=== PATIENT | male | born 1975 | race Caucasian/White ===

== ENCOUNTER 2018-01-28 07:16 | Day surgery (SDC) | payer OTHER ==
[2018-01-28] MEDS: NS 1,000 ML IV (08:00)
[2018-01-28] MEDS ORDERED: PROPOFOL 200 MG/20 ML VIAL As Ordered (08:56)
[2018-01-28] MEDS ORDERED: LIDOCAINE 2% INJ 100 MG/5 ML SDV (FOR ANES.) As Ordered (08:56)
== END 2018-01-28 09:55 | disposition home or self-care (01) ==
LOC: M OPP 07:16
DX: K64.0 First degree hemorrhoids (principal); K51.90 Ulcerative colitis, unspecified, without complications; Z86.010 Personal history of colon polyps; G47.30 Sleep apnea, unspecified; G43.909 Migraine, unspecified, not intractable, without status migrainosus; F32.9 Major depressive disorder, single episode, unspecified; M16.12 Unilateral primary osteoarthritis, left hip; Z79.891 Long term (current) use of opiate analgesic; Z79.899 Other long term (current) drug therapy; Z09 Encounter for follow-up examination after completed treatment for conditions other than malignant neoplasm
CPT/HCPCS: 45378

== ENCOUNTER 2018-04-29 14:25 | Emergency (ER) | payer OTHER ==
[2018-04-29] MEDS: MECLIZINE 25 MG TABLET PO (16:50)
[2018-04-29] MEDS: KETOROLAC TROMETHAMINE 10 MG TAB PO (16:50)
[2018-04-29 17:21] LABS: BASO % 0.5 % (0.0-1.0); EOS # 0.2 10^3/uL (0.0-0.50); EOS % 1.9 % (0.0-3.0); HEMATOCRIT 47.2 % (42.0-52.0); HEMOGLOBIN 16.3 g/dl (13.5-17.5); IMMATURE GRANULOCYTE % 0.2 % (0-3.0); LYMPH # 1.9 10^3/uL (1.5-4.5); LYMPH % 22.9 % (24.0-44.0); MEAN CORPUSCULAR HEMOGLOBIN 32.2 pg (27.0-33.0); MEAN CORPUSCULAR HGB CONC 34.5 g/dl (32.0-36.5); MEAN CORPUSCULAR VOLUME 93.3 fl (80.0-96.0); MONO # 0.7 10^3/uL (0.0-0.8); MONO % 9.1 % (0.0-5.0); NEUTROPHILS # 5.3 10^3/uL (1.8-7.7); NEUTROPHILS % 65.4 % (36.0-66.0); PLATELET COUNT, AUTOMATED 127 10^3/uL (150-450); RED BLOOD COUNT 5.06 10^6/uL (4.30-6.10); RED CELL DISTRIBUTION WIDTH 12.4 % (11.5-14.5); WHITE BLOOD COUNT 8.1 10^3/uL (4.0-10.0)
[2018-04-29 17:45] LABS: ANION GAP 6 MEQ/L (8-16); BLOOD UREA NITROGEN 16 MG/DL (7-18); CALCIUM LEVEL 8.9 MG/DL (8.5-10.1); CARBON DIOXIDE LEVEL 31 MEQ/L (21-32); CHLORIDE LEVEL 105 MEQ/L (98-107); CREATININE FOR GFR 1.21 MG/DL (0.70-1.30); GLOMERULAR FILTRATION RATE > 60.0 (>60); GLUCOSE, FASTING 92 MG/DL (70-100); MAGNESIUM LEVEL 2.1 MG/DL (1.8-2.4); POTASSIUM SERUM 4.8 MEQ/L (3.5-5.1); SODIUM LEVEL 142 MEQ/L (136-145); THYROID STIMULATING HORMONE 0.556 uIU/ML (0.358-3.740)
== END 2018-04-29 18:31 | disposition home or self-care (01) ==
LOC: M ED 14:25
DX: G43.909 Migraine, unspecified, not intractable, without status migrainosus (principal); R42 Dizziness and giddiness; G47.33 Obstructive sleep apnea (adult) (pediatric); F32.9 Major depressive disorder, single episode, unspecified; M50.90 Cervical disc disorder, unspecified, unspecified cervical region; K52.9 Noninfective gastroenteritis and colitis, unspecified; Z79.899 Other long term (current) drug therapy; Z79.2 Long term (current) use of antibiotics
CPT/HCPCS: 70450